=== PATIENT | female | born 1985 | race Caucasian/White ===

== ENCOUNTER 2018-05-21 10:22 | Emergency (ER) | payer OTHER ==
[2018-05-21] MEDS ORDERED: LORazepam TAB(*) 1 MG PO ONE (11:09)
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
[2018-05-21 12:49] VITALS: BP 102/69
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
== END 2018-05-21 12:45 | disposition home or self-care (01) ==
LOC: ED 10:22
DX: S16.1XXA Strain of muscle, fascia and tendon at neck level, initial encounter (principal); S46.912A Strain of unspecified muscle, fascia and tendon at shoulder and upper arm level, left arm, initial encounter; V43.52XA Car driver injured in collision with other type car in traffic accident, initial encounter; Y92.410 Unspecified street and highway as the place of occurrence of the external cause; J98.11 Atelectasis; M50.323 Other cervical disc degeneration at C6-C7 level; M47.812 Spondylosis without myelopathy or radiculopathy, cervical region
CPT/HCPCS: 71250; 72125; 99282; A9270-GY